=== PATIENT | male | born 1985 | race African-American/Black ===

== ENCOUNTER 2020-12-20 22:53 | Emergency (ER) | payer OTHER ==
[~2020-12-20] VITALS: Ht 185.4 cm; Wt 63.5 kg
[2020-12-20] MEDS ORDERED: DICY20TA (23:28)
[2020-12-20] MEDS ORDERED: ZOFRAN8 MG (23:28)
[2020-12-20] MEDS ORDERED: CYCLOBENZAPRINE10 MG (23:28)
[2020-12-20] MEDS ORDERED: PHENERGAN25 MG/1 M1 (23:28)
[2020-12-21] MEDS ORDERED: PEPCID AC20 MG PO (04:21)
[2020-12-21] MEDS ORDERED: CARAFATE1 GM PO (04:21)
[2020-12-21] MEDS ORDERED: PANTOPRAZOLE SO20 MG PO (04:21)
== END 2020-12-21 04:30 | disposition home or self-care (01) ==
LOC: ER 22:53
DX: R10.31 Right lower quadrant pain (principal); R11.0 Nausea